=== PATIENT | female | born 1950 | race Caucasian/White ===

== ENCOUNTER 2021-01-18 23:31 | Observation (INO) | payer OTHER ==
[~2021-01-18] VITALS: Ht 165.1 cm; Wt 103.1 kg
[~2021-01-18 23:31] MED LIST: ACET325 PO; ALBU2.5V5 INH; AMIT25 PO; Aspirin EC81 MG PO; BIOTINE MM; COMBIVENT RESPIM4 GM INH; CYCL10 PO; LAVAP17G PO; LORTAB 10-3251 EACH PO; OMEP20ER PO; Pravachol40 MG PO; Prilosec Otc20 MG PO; Prinivil10 MG PO; TRAZ100 PO; [UNRECOGNIZED DRUG - REMARK]
[2021-01-18 23:58] LABS: BASOPHILS ABSOLUTE AUTO 0.04 K/mm3 (0.00-0.23); BASOPHILS PERCENT AUTO 0 % (0-2); EOSINOPHILS ABSOLUTE AUTO 0.02 K/mm3 (0.00-0.68); EOSINOPHILS PERCENT AUTO 0 % (0-6); Hematocrit 35.3 % (33.0-51.0); Hemoglobin 10.9 g/dL (11.5-16.0); IMMATURE GRAN ABSOLUTE AUTO 0.08 K/mm3 (0.00-0.10); IMMATURE GRAN PERCENT AUTO 1 % (0-1); LYMPHOCYTES ABSOLUTE AUTO 1.71 K/mm3 (0.84-5.20); LYMPHOCYTES PERCENT AUTO 14 % (21-46); MONOCYTES ABSOLUTE AUTO 0.37 K/mm3 (0.16-1.47); MONOCYTES PERCENT AUTO 3 % (4-13); Mean Corpuscular HGB 29.1 pg (26.0-34.0); Mean Corpuscular HGB Conc 30.9 g/dL (31.5-36.5); Mean Corpuscular Volume 94 fL (80-100); Mean Platelet Volume 11.5 fL (9.1-12.4); NEUTROPHILS ABSOLUTE AUTO 9.93 K/mm3 (1.96-9.15); NEUTROPHILS PERCENT AUTO 82 % (41-73); Platelet Count 191 K/mm3 (150-400); RDW Coefficient Variation 13.3 % (11.7-14.2); RDW Standard Deviation 45.7 fL (35.1-46.3); Red Blood Cell Count 3.75 M/mm3 (3.80-5.20); White Blood Cell Count 12.15 K/mm3 (4.00-11.30)
[2021-01-19 00:08] LABS: PCO2 Arterial 43.9 mmHg (35-45); PO2 Arterial 66.1 mmHg (80-100); pH Blood Arterial 7.37 (7.35-7.45)
[2021-01-19 00:17] LABS: Alanine Aminotransfer (ALT/SGP 18 U/L (12-78); Albumin, Blood 2.9 g/dL (3.4-5.0); Albumin/Globulin Ratio 0.9 (0.8-1.8); Alk Phos 44 U/L (50-136); Anion Gap 2 mmol/L (6-16); Aspartate Aminotrans (AST/SGOT 9 U/L (12-37); Bilirubin, Total 0.2 mg/dL (0.1-1.0); Blood Urea Nitrogen 37 mg/dL (8-24); Bun/Creatinine Ratio 53.5 (12.0-20.0); CO2, Blood 31 mmol/L (21-32); Calcium, Blood 7.6 mg/dL (8.5-10.1); Chloride, Blood 108 mmol/L (98-108); Creatinine, Blood 0.69 mg/dL (0.40-1.00); Globulin, Blood 3.1 g/dL (2.2-4.0); Glomerular Filtration Rate >60 (60-); Glucose, Blood 152 mg/dL (70-99); Potassium, Blood 4.5 mmol/L (3.5-5.5); Sodium, Blood 141 mmol/L (136-145); Troponin I <0.015 ng/mL (0.000-0.040)
[2021-01-19] MEDS ORDERED: HYDACE10B PO (03:08)
[2021-01-19 03:51] LABS: CPK Creatine Kinase 71 U/L (26-193)
[2021-01-19 08:29] LABS: BASOPHILS ABSOLUTE AUTO 0.03 K/mm3 (0.00-0.23); BASOPHILS PERCENT AUTO 0 % (0-2); EOSINOPHILS ABSOLUTE AUTO 0.01 K/mm3 (0.00-0.68); EOSINOPHILS PERCENT AUTO 0 % (0-6); Hematocrit 30.7 % (33.0-51.0); Hemoglobin 9.6 g/dL (11.5-16.0); IMMATURE GRAN ABSOLUTE AUTO 0.05 K/mm3 (0.00-0.10); IMMATURE GRAN PERCENT AUTO 0 % (0-1); LYMPHOCYTES PERCENT AUTO 23 % (21-46); MONOCYTES ABSOLUTE AUTO 0.74 K/mm3 (0.16-1.47); MONOCYTES PERCENT AUTO 6 % (4-13); Mean Corpuscular HGB 29.3 pg (26.0-34.0); Mean Corpuscular HGB Conc 31.3 g/dL (31.5-36.5); Mean Corpuscular Volume 94 fL (80-100); Mean Platelet Volume 11.6 fL (9.1-12.4); NEUTROPHILS ABSOLUTE AUTO 8.23 K/mm3 (1.96-9.15); NEUTROPHILS PERCENT AUTO 70 % (41-73); Platelet Count 168 K/mm3 (150-400); RDW Coefficient Variation 13.4 % (11.7-14.2); RDW Standard Deviation 46.1 fL (35.1-46.3); Red Blood Cell Count 3.28 M/mm3 (3.80-5.20); White Blood Cell Count 11.76 K/mm3 (4.00-11.30)
[2021-01-19 08:47] LABS: Alanine Aminotransfer (ALT/SGP 15 U/L (12-78); Albumin, Blood 2.8 g/dL (3.4-5.0); Albumin/Globulin Ratio 0.9 (0.8-1.8); Alk Phos 41 U/L (50-136); Anion Gap 6 mmol/L (6-16); Aspartate Aminotrans (AST/SGOT 7 U/L (12-37); Bilirubin, Total 0.2 mg/dL (0.1-1.0); Blood Urea Nitrogen 40 mg/dL (8-24); Bun/Creatinine Ratio 64.7 (12.0-20.0); CO2, Blood 25 mmol/L (21-32); CPK Creatine Kinase 120 U/L (26-193); Calcium, Blood 7.6 mg/dL (8.5-10.1); Chloride, Blood 110 mmol/L (98-108); Creatinine, Blood 0.62 mg/dL (0.40-1.00); Glomerular Filtration Rate >60 (60-); Glucose, Blood 91 mg/dL (70-99); Potassium, Blood 4.1 mmol/L (3.5-5.5); Sodium, Blood 141 mmol/L (136-145); Total Protein, Blood 5.8 g/dL (6.4-8.2)
[2021-01-19 10:09] LABS: Source, Urine Clean Catch
[2021-01-19 10:16] LABS: Appearance, Urine Clear (Clear); Bilirubin, Urine Neg (Neg); Blood, Urine 1+ (Neg); Glucose Qualitative, Urine Neg (Neg); Ketones, Urine Neg (Neg); Leukocyte Esterase, Urine Neg (Neg); Nitrite, Urine Neg (Neg); Protein, Urine Neg (Neg); Specific Gravity, Urine 1.015 (1.003-1.022); Urobilinogen, Urine NORM (Normal)
[2021-01-19 10:45] LABS: Color, Urine Pale Yellow (P-Yellow)
[2021-01-19 10:49] LABS: Squamous Epithelial Cells Few /hpf (Few)
[2021-01-19 10:50] LABS: Red Blood Cells, Urine 0-2 /hpf (0-2); White Blood Cells, Urine 0-2 /hpf (0-5)
[2021-01-19 10:52] LABS: Bacteria Rare /hpf
== END 2021-01-19 13:32 | disposition home or self-care (01) ==
LOC: ER 23:31 → MEDS 23:32 → ENPENDDIS 01-19 12:02 → MEDS 01-19 13:32
PROVIDERS: Emergency Medicine; ADMIT Internal Medicine
DX: K52.9 Noninfective gastroenteritis and colitis, unspecified (principal); R55 Syncope and collapse; J44.9 Chronic obstructive pulmonary disease, unspecified; I10 Essential (primary) hypertension; D64.9 Anemia, unspecified; Z86.73 Personal history of transient ischemic attack (TIA), and cerebral infarction without residual deficits; Z79.82 Long term (current) use of aspirin; Z79.891 Long term (current) use of opiate analgesic
CPT/HCPCS: 36415; 36600; 71045; 74176; 80053; 81001; 82550; 82803; 83605; 83690; 83880; 84484; 85025; 93005; 93010; 96372; 99285-25; A9270; G0378; J1650; J7030

== ENCOUNTER 2021-01-21 13:15 | Inpatient (IN) | payer MEDICARE, OTHER ==
[~2021-01-21] VITALS: Ht 165.1 cm; Wt 101.6 kg
[~2021-01-21 13:15] MED LIST changes: +HYDACE10B PO
[2021-01-21 13:53] LABS: Alanine Aminotransfer (ALT/SGP 17 U/L (12-78); Albumin, Blood 2.9 g/dL (3.4-5.0); Alk Phos 39 U/L (50-136); Anion Gap 5 mmol/L (6-16); Aspartate Aminotrans (AST/SGOT 13 U/L (12-37); Bilirubin, Total 0.2 mg/dL (0.1-1.0); Blood Urea Nitrogen 21 mg/dL (8-24); Bun/Creatinine Ratio 32.8 (12.0-20.0); CO2, Blood 26 mmol/L (21-32); Calcium, Blood 7.4 mg/dL (8.5-10.1); Chloride, Blood 108 mmol/L (98-108); Creatinine, Blood 0.64 mg/dL (0.40-1.00); Glomerular Filtration Rate >60 (60-); Glucose, Blood 128 mg/dL (70-99); Potassium, Blood 3.8 mmol/L (3.5-5.5); Sodium, Blood 139 mmol/L (136-145); Total Protein, Blood 5.9 g/dL (6.4-8.2)
[2021-01-21 13:54] LABS: BASOPHILS ABSOLUTE AUTO 0.05 K/mm3 (0.00-0.23); BASOPHILS PERCENT AUTO 0 % (0-2); EOSINOPHILS ABSOLUTE AUTO 0.01 K/mm3 (0.00-0.68); EOSINOPHILS PERCENT AUTO 0 % (0-6); Hematocrit 21.2 % (33.0-51.0); Hemoglobin 6.6 g/dL (11.5-16.0); IMMATURE GRAN PERCENT AUTO 1 % (0-1); LYMPHOCYTES ABSOLUTE AUTO 1.76 K/mm3 (0.84-5.20); LYMPHOCYTES PERCENT AUTO 11 % (21-46); MONOCYTES ABSOLUTE AUTO 0.58 K/mm3 (0.16-1.47); MONOCYTES PERCENT AUTO 4 % (4-13); Mean Corpuscular HGB 29.9 pg (26.0-34.0); Mean Corpuscular HGB Conc 31.1 g/dL (31.5-36.5); Mean Corpuscular Volume 96 fL (80-100); Mean Platelet Volume 11.6 fL (9.1-12.4); NEUTROPHILS ABSOLUTE AUTO 13.16 K/mm3 (1.96-9.15); NEUTROPHILS PERCENT AUTO 84 % (41-73); Platelet Count 177 K/mm3 (150-400); RDW Coefficient Variation 13.6 % (11.7-14.2); RDW Standard Deviation 46.3 fL (35.1-46.3); Red Blood Cell Count 2.21 M/mm3 (3.80-5.20); White Blood Cell Count 15.66 K/mm3 (4.00-11.30)
[2021-01-21 14:12] LABS: International Normalized Ratio 1.03; Prothrombin Time Results 11.1 Sec (9.7-11.5)
[2021-01-21] MEDS ORDERED: Prinivil10 MG PO (14:43)
[2021-01-21] MEDS ORDERED: CYCL10 PO (14:43)
[2021-01-21] MEDS ORDERED: LISI20 PO (14:44)
[2021-01-21] MEDS ORDERED: TRAZ100 PO (14:44)
[2021-01-21] MEDS ORDERED: HYDROCODONE-AC1 EAC7 PO (14:44)
--- NOTE | 2021-01-21 18:48 | NUR ---
ADMISSION/SHIFT SUMMARY PT ARRIVED TO UNIT @ APPROX 1640 FROM ED. PT ABLE TO AMBULATE TO BED WITHOUT ASSISTANCE, AND TOLERATED THE ACTIVITY WELL. LS CLEAR AND DIM, SATING ABOVE 92% ON RA. VSS. UNIT OF PRBC RUNNING UPON ARRIVAL. HOURLY VS CHECKS BEING COMPLETED. VS REMAINING STABLE T/O REST OF SHIFT. PT DOES REPORT NAUSEA AND SOME CHRONIC BACK PAIN, BOTH TREATED PER EMAR. ADMISSION COMPLETED. PT STATES SHE HAS AN ADVANCE DIRECTIVE AT HOME THAT HER DAUGHTER WILL BRING TOMORROW, CODE STATUS CHANGED TO DNR PER PT WISHES. PT IS CURRENTLY RESTING IN BED, WITH CALL LIGHT WITHIN REACH. CALLS APPROPRIATELY.
[2021-01-21 22:06] LABS: Hematocrit 22.9 % (33.0-51.0); Hemoglobin 7.4 g/dL (11.5-16.0)
--- NOTE | 2021-01-21 22:19 | NUR ---
ONE UNIT OF PRBCS INFUSED AT SHIFT COMMENCE, BLOOD REDRAW A FEW MIN AGO. TEMP 100.0 TEMPORAL. CALL PLACED TO , ORDERS FOR TYLENOL 650 MG PO OBTAINED. CALL LIGHT IN REACH
--- NOTE | 2021-01-22 04:09 | NUR ---
BP 145/102, NO ANTIHYPERTENSIVE MEDS ON OCT. NOTIFIED, IVF OF NS, STOPPED. WILL RE CHECK BP IN 1 TO 2 HRS. CALL LIGHT IN REACH. RESTING QUIETLY AT THIS TIME
--- NOTE | 2021-01-22 04:21 | NUR ---
CONCRETE POURING SUPERVISOR SUMMARY RECEIVED ONE UNIT OF PRBC AT SHIFT SOMMENCE. HGB POST INFUSION WAS 7.4. IVF STARTED POST INFUSION, BUT BP TRENDED UPWARD TO 145/102, AND MD WAS NOTIFIED AND IVF DC'D. HAS BEEN AWAKE AT INTERVALS THROUGH SHIFT. TEMP WAS ELEVATEED (100.0) EARLIER AND RECEIVED TYLENOL. MED EFFECTIVE - SEE DOC FLOW SHEET FOR DETAILS. CALL LIGHT IN REACH
[2021-01-22 04:49] LABS: Hematocrit 21.9 % (33.0-51.0); Hemoglobin 7.1 g/dL (11.5-16.0); Mean Corpuscular HGB 30.3 pg (26.0-34.0); Mean Corpuscular HGB Conc 32.4 g/dL (31.5-36.5); Mean Corpuscular Volume 94 fL (80-100); Mean Platelet Volume 11.4 fL (9.1-12.4); NRBC ABSOLUTE 0.04 K/mm3 (0.00-0.02); NRBC Auto 0.4 /100 WBC (0.0-0.2); Platelet Count 152 K/mm3 (150-400); RDW Coefficient Variation 13.8 % (11.7-14.2); RDW Standard Deviation 45.6 fL (35.1-46.3); Red Blood Cell Count 2.34 M/mm3 (3.80-5.20); White Blood Cell Count 9.23 K/mm3 (4.00-11.30)
[2021-01-22 05:10] LABS: Anion Gap 3 mmol/L (6-16); Blood Urea Nitrogen 15 mg/dL (8-24); Bun/Creatinine Ratio 24.5 (12.0-20.0); CO2, Blood 29 mmol/L (21-32); Calcium, Blood 7.4 mg/dL (8.5-10.1); Chloride, Blood 109 mmol/L (98-108); Creatinine, Blood 0.61 mg/dL (0.40-1.00); Glomerular Filtration Rate >60 (60-); Glucose, Blood 105 mg/dL (70-99); Potassium, Blood 3.5 mmol/L (3.5-5.5); Sodium, Blood 141 mmol/L (136-145)
[2021-01-22 11:10] LABS: Hematocrit 22.9 % (33.0-51.0); Hemoglobin 7.3 g/dL (11.5-16.0)
--- NOTE | 2021-01-22 13:57 | NUR ---
PT TRANSFERED TO [facility] FROM FLOOR VIA GURNY. History, Chart, Medications and Allergies reviewed before start of procedure. Lungs clear T/O to Auscultation. Patient confirms NPO status and agrees with scheduled surgery.
--- NOTE | 2021-01-22 14:03 | NUR ---
Patient is sitting up in bed and alert. Patient tells me about the physical struggles with being so uncomfortable and dealing with pain and nausea. She also tells me about her family unit complications and that she adopted and raised her granddaughters because her daughter went off the rails. She talks about how important family is to her, how important her lety is to her and how she important her health is to her. I normalize patient's experience provide therapeutic listening and prayer. Patient responds well and shows signs of an elevated mood.
--- NOTE | 2021-01-22 14:03 | NUR ---
PT'S COVID STILL PENDING. JESUS HARRIS AND YASH LEE OKAY TO PROCEED WEARING PROPER PPE. PT ALSO STATES SHE HAS BEEN VACCINATED.
--- NOTE | 2021-01-22 14:07 | NUR ---
01/22/21 1407 STEVEN BOCANEGRA History, Chart, Medications and Allergies reviewed before start of procedure. O2 VIA POM INTACT THROUGHOUT SEDATION/PROCEDURE. Patient confirms NPO status and agrees with scheduled surgery. 3-LEAD EKG REVIEWED WITH PHYSICIAN PRIOR TO START OF PROCEDURE. MONITOR INTACT WITH CONTINUOUS PULSE OXIMETRY AND INTERMITTENT BP. PATIENT DETERMINED TO BE ASA APPROPRIATE FOR PROPOFOL SEDATION PRIOR TO START OF PROCEDURE BY DR. GUNN/
[2021-01-22 14:22] LABS: SARS-Cov-2 (COVID-19) PCR, MMC NEGATIVE (NEGATIVE)
--- NOTE | 2021-01-22 18:31 | NUR ---
SHIFT SUMMARY PT IS A&O AND ABLE TO MAKE NEEDS KNONW. PT IS INDEPENDENT IN ROOM. PT EXPERIENCED NAUSEA AND STOMACH PAIN DURING SHIFT. MEDICATED PER EMAR. NAUSE DID NOT GO AWAY UNTIL PT RETURNED FROM DAY SURGERY. PT HAD UPPER SCOPE DONE WHERE BLEEDING ULCER WAS FOUND AND CLIP APPLIED. PT ADVANCED TO CLEAR LIQUID AFTER PROCEDURE AND TOLERATED BROTH FOR DINNER. DAUGHTER W/ POA VISITED DAUGHTER AND BROUGHT POA PAPERWORK THAT WAS COPIED AND PLACED IN CHART. 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
[2021-01-23 04:48] LABS: Hematocrit 23.2 % (33.0-51.0); Hemoglobin 7.3 g/dL (11.5-16.0); Mean Corpuscular HGB 29.7 pg (26.0-34.0); Mean Corpuscular HGB Conc 31.5 g/dL (31.5-36.5); Mean Corpuscular Volume 94 fL (80-100); Mean Platelet Volume 11.7 fL (9.1-12.4); NRBC ABSOLUTE 0.02 K/mm3 (0.00-0.02); NRBC Auto 0.2 /100 WBC (0.0-0.2); Platelet Count 190 K/mm3 (150-400); RDW Coefficient Variation 14.2 % (11.7-14.2); RDW Standard Deviation 46.5 fL (35.1-46.3); Red Blood Cell Count 2.46 M/mm3 (3.80-5.20); White Blood Cell Count 10.94 K/mm3 (4.00-11.30)
[2021-01-23 05:15] LABS: Anion Gap 5 mmol/L (6-16); Blood Urea Nitrogen 9 mg/dL (8-24); CO2, Blood 29 mmol/L (21-32); Calcium, Blood 7.6 mg/dL (8.5-10.1); Chloride, Blood 108 mmol/L (98-108); Creatinine, Blood 0.64 mg/dL (0.40-1.00); Glomerular Filtration Rate >60 (60-); Glucose, Blood 94 mg/dL (70-99); Potassium, Blood 3.2 mmol/L (3.5-5.5); Sodium, Blood 142 mmol/L (136-145)
--- NOTE | 2021-01-23 06:40 | NUR ---
SHIFT SUMMARY PT IS A 70 Y/O FEMALE, ADMITTED FOR ACUTE ANEMIA. SHE IS A&O X 4, INDEPENDENT IN THE ROOM. PT HAD AN UPPER ENDOSCOPY WITH A STOMACH ULCER BLEED CAUTERIZED DURING DAY SHIFT PER REPORT. SHE HAS DENIED ANY ABD PAIN OR NAUSEA DURING THE NIGHT. VITAL SIGNS STABLE. NO ACUTE CHANGES IN PT CONDITION NOTED DURING THE NIGHT. REPORT GIVEN TO ONCOMING RN.
[2021-01-23] MEDS ORDERED: PANT40 PO (11:37)
[2021-01-23] MEDS ORDERED: Carafate1 GM/10 ML PO (11:38)
--- NOTE | 2021-01-23 15:30 | NUR ---
DISCHARGE PT HAD SOFT DIET FOR LUNCH AND TOLLERATED IT WELL. PT DC HOME WAS PICKED UP BY DAUGHTER. REVIEWED DC PACKET WITH PT AND TOOK OUT IV BEFORE BEING TAKEN OFF FLOOR BY WHEECHIAR. PT EXCITED TO BE GOING HOME AND SLEEPING IN HER OWN BED. PT DENIED P/N/V DURING SHIFT.
== END 2021-01-23 14:30 | disposition home or self-care (01) | DRG 378 ==
LOC: ER 13:15 → MEDS 16:32
PROVIDERS: Emergency Medicine; Student in an Organized Health Care Education/Training Program; ADMIT Internal Medicine
PROC: 30233N1 Transfusion of Nonautologous Red Blood Cells into Peripheral Vein, Percutaneous Approach (ICD-10-PCS; principal; 2021-01-21)
PROC: 0W3P8ZZ Control Bleeding in Gastrointestinal Tract, Via Natural or Artificial Opening Endoscopic (ICD-10-PCS; 2021-01-22 14:00)
DX: K25.4 Chronic or unspecified gastric ulcer with hemorrhage (principal); D62 Acute posthemorrhagic anemia; Z66 Do not resuscitate; Z20.822 Contact with and (suspected) exposure to COVID-19; I10 Essential (primary) hypertension; K44.9 Diaphragmatic hernia without obstruction or gangrene; J44.9 Chronic obstructive pulmonary disease, unspecified; K21.9 Gastro-esophageal reflux disease without esophagitis; K22.70 Barrett's esophagus without dysplasia; M19.90 Unspecified osteoarthritis, unspecified site; Z88.0 Allergy status to penicillin; Z88.5 Allergy status to narcotic agent; Z87.891 Personal history of nicotine dependence; Z86.73 Personal history of transient ischemic attack (TIA), and cerebral infarction without residual deficits; Z88.8 Allergy status to other drugs, medicaments and biological substances; Z79.899 Other long term (current) drug therapy; Z79.82 Long term (current) use of aspirin; Z98.890 Other specified postprocedural states
CPT/HCPCS: 36415; 36430; 80048; 80053; 85014; 85018; 85025; 85027; 85610; 85730; 86850; 86900; 86901; 86923; 94760; 96374; 99285-25; A9270; C9113; J0171; J2060; J2405; J2704; J2765; J3010; J3480; J7030; J7120; P9016; U0004

== ENCOUNTER 2021-03-09 12:41 | Day surgery (SDC) | payer OTHER ==
[~2021-03-09] VITALS: Ht 165.1 cm; Wt 100.8 kg
[~2021-03-09 12:41] MED LIST changes: +Carafate1 GM/10 ML PO; +HYDROCODONE-AC1 EAC7 PO; +LISI20 PO; +PANT40 PO
[2021-03-09] MEDS ORDERED: MIRALAX17 GM (13:24)
[2021-03-09] MEDS ORDERED: OMEP20ER (13:24)
== END 2021-03-09 15:02 | disposition home or self-care (01) ==
LOC: ORSCSDS 12:41
PROVIDERS: Internal Medicine Gastroenterology
PROC: 0DB58ZX Excision of Esophagus, Via Natural or Artificial Opening Endoscopic, Diagnostic (ICD-10-PCS; principal; 2021-03-09 13:45)
PROC: 0DB78ZX Excision of Stomach, Pylorus, Via Natural or Artificial Opening Endoscopic, Diagnostic (ICD-10-PCS; principal; 2021-03-09 13:45)
PROC: 0DJD8ZZ Inspection of Lower Intestinal Tract, Via Natural or Artificial Opening Endoscopic (ICD-10-PCS; principal; 2021-03-09 13:45)
DX: K22.70 Barrett's esophagus without dysplasia (principal); K29.70 Gastritis, unspecified, without bleeding; Z12.11 Encounter for screening for malignant neoplasm of colon; Z86.010 Personal history of colon polyps; K57.30 Diverticulosis of large intestine without perforation or abscess without bleeding; Z87.891 Personal history of nicotine dependence; J44.9 Chronic obstructive pulmonary disease, unspecified; I10 Essential (primary) hypertension; Z86.73 Personal history of transient ischemic attack (TIA), and cerebral infarction without residual deficits; Z79.899 Other long term (current) drug therapy
CPT/HCPCS: 43239; G0105; 88305; 88342; J2704; J7120

== ENCOUNTER 2021-03-31 02:21 | Day surgery (SDC) | payer OTHER ==
[~2021-03-31 02:21] MED LIST changes: +MIRALAX17 GM; +OMEP20ER
== END 2021-03-31 16:38 | disposition home or self-care (01) ==
LOC: ATC 02:21
DX: D50.0 Iron deficiency anemia secondary to blood loss (chronic) (principal); J44.9 Chronic obstructive pulmonary disease, unspecified; I10 Essential (primary) hypertension; K21.9 Gastro-esophageal reflux disease without esophagitis; Z88.6 Allergy status to analgesic agent; Z88.0 Allergy status to penicillin; Z88.8 Allergy status to other drugs, medicaments and biological substances
CPT/HCPCS: 96365; J2916

== ENCOUNTER 2021-04-01 01:49 | Day surgery (SDC) | payer OTHER | END 2021-04-01 17:07 | disposition home or self-care (01) | LOC: ATC 01:49 | DX: D50.0 Iron deficiency anemia secondary to blood loss (chronic) (principal); K92.2 Gastrointestinal hemorrhage, unspecified; J44.9 Chronic obstructive pulmonary disease, unspecified; I10 Essential (primary) hypertension; Z88.0 Allergy status to penicillin | CPT/HCPCS: 96365; J2916 ==

== ENCOUNTER 2021-04-02 03:58 | Day surgery (SDC) | payer OTHER | END 2021-04-02 15:40 | disposition home or self-care (01) | LOC: ATC 03:58 | DX: D50.9 Iron deficiency anemia, unspecified (principal); K92.2 Gastrointestinal hemorrhage, unspecified; J44.9 Chronic obstructive pulmonary disease, unspecified; I10 Essential (primary) hypertension | CPT/HCPCS: 96365; J2916 ==

== ENCOUNTER → 2023-06-16 | Outpatient (CLI) | payer OTHER ==
[2023-06-17 16:11] LABS: HPV 16 Negative (Negative); HPV 18 Negative (Negative); HPV OTHER HR TYPES Negative (Negative)
== END ==
LOC: LAB SHORT 11:05 → LAB 11:05
PROVIDERS: Obstetrics & Gynecology
DX: Z01.419 Encounter for gynecological examination (general) (routine) without abnormal findings (principal)
CPT/HCPCS: 87624; G0145

== ENCOUNTER → 2023-06-16 | Outpatient (CLI) | payer OTHER | END | disposition home or self-care (01) | LOC: LAB SHORT 14:51 → LAB 14:51 | DX: N95.0 Postmenopausal bleeding (principal) | CPT/HCPCS: 88305 ==